=== PATIENT | male | born 1970 | race Caucasian/White ===

== ENCOUNTER → 2016-12-10 | Outpatient (CLI) | payer BC ==
[~2016-12-10] MED LIST: TEST1INJ2 SC; TRAM-10 PO
== END | disposition home or self-care (01) ==
LOC: C.RDSM 14:22
PROVIDERS: ATTEND Orthopaedic Surgery Sports Medicine
DX: M25.562 Pain in left knee (principal)

== ENCOUNTER → 2018-01-20 | Outpatient (CLI) | payer BC, OTHER | END | disposition home or self-care (01) | LOC: C.RDSM 16:07 | PROVIDERS: ATTEND Orthopaedic Surgery Sports Medicine | DX: M25.562 Pain in left knee (principal) ==

== ENCOUNTER → 2018-02-11 | Day surgery (SDC) | payer OTHER ==
[2018-02-01 11:19] VITALS: Ht 182.9 cm; Wt 97.7 kg
[~2018-02-11] VITALS: Ht 182.9 cm; Wt 97.7 kg
[~2018-02-11] MED LIST changes: +ATROPINE SULFATE 0.1 MG/ML 5ML SYR IV PRN; +BUPIVACAINE/EPINEPHRINE 0.5% MPF 1:200,000 30 ML VIAL ONE; +CEFAZOLIN 2000MG IV PUSH 15 ML IV SCH; +DEXAMETHASONE SOD INJ 4 MG/ML VIAL ONE; +EpHEDrine SULFATE INJ 50 MG/ML AMP IV PRN; +EpINEphrine INJ 1MG/ML AMP 1 MG/ML AMP ONE; +FENTANYL CITRATE INJ 50 MCG/1 ML 2 ML VIAL ONE; +HYDROCODONE/ACETAMIN 5/325MG TAB PO PRN; +KETOROLAC TROMETHAMINE 30 MG/ML VIAL ONE; +LACTATED RINGER'S 1000ML 1,000 ML IV SCH; +LIDOCAINE HCL 1% 20 ML VIAL ONE; +LIDOCAINE HCL 2% 2 ML VIAL (20MG/ML) ONE; +MIDAZOLAM HCL 1 MG/ML 2ML VIAL ONE; +MoRPHine SULFATE 2 MG/ML CARP IV PRN; +MoRPHine SULFATE 4 MG/ML 1 ML CARP\\VIAL IV PRN; +ONDANSETRON INJ 2 MG/ML 2 ML VIAL IV PRN; +ONDANSETRON INJ 2 MG/ML 2 ML VIAL ONE; +PROPOFOL IV EMULSION 10 MG/ML 20 ML VIAL IV ONE
--- NOTE | 2018-02-11 06:38 | History & Physical Bridge - SC ---
H&P Re-Evaluation Bridge Note: I have examined the patient, reviewed the History & Physical and in the interval since the performance of the History & Physical I have noted the following changes of clinical significance: No changes noted
--- NOTE | 2018-02-11 08:50 | [facility] Operative Report ---
Operative Report Operative Date Feb 11, 2018. Pre-Operative Diagnosis Left Knee Pain, Iliotibial Band Syndrome Post-Operative Diagnosis Same + Medial & Lateral meniscus tears, and synovitis Procedure(s) Performed 1) Left Knee Arthroscopy, Extensive Debridement. 2) Partial Medial and Lateral Menisectomy. 3) Open Iliotibial Band Lengthening. 4) Manipulation Under Anesthesia. Surgeon Dr. Roque Pick Up Man Surgeon(s) Dr. Washington, Fellow Estimated Blood Loss 15ml Findings The left knee was examined under anesthesia. Range of motion was 0-135, there was audible and palpable breakup of adhesions. Ligamentous examination exhibited: stable Stewart, posterior drawer, varus and valgus stress at 0 & 30 degrees. ARTHROSCOPIC FINDINGS: There was significant synovitis in the suprapatellar pouch. 1) PATELLOFEMORAL JOINT: The articular cartilage of the Patella and Trochlea showed Outerbridge type I changes diffusely. 2) GUTTERS: No loose bodies. There was some synovitis in both gutters. 3) MEDIAL COMPARTMENT: The articular cartilage of the femur had type I changes, with a small bubbled area near the intercondylar notch. The articular cartilage of the Tibia had more diffuse type I changes. The medial meniscus had a small radial tear at the apex. 4) ACL/PCL: They were both visualized and probed to be intact. 5) LATERAL COMPARTMENT: The lateral compartment was then entered in a figure-of- four position. The femoral or tibial cartilage was intact. The tibial articular cartilage had type I changes. The lateral meniscus had degenerative fraying along the edges from posterior to anterior. The IT band had significant scarring superficially as well as deep to the IT band. Fluids 1000 Specimens A) IT Band Left Leg B) IT Band Bursa Left Leg Drains None Anesthesia Type General Complication(s) none Disposition Recovery Room / PACU (Stable) Indications This is a 47-year-old male who has had a recalcitrant IT band syndrome resulting in significant pain, difficulty ambulating, and decreased range of motion that failed to respond to conservative treatment. I recommended that a left knee arthroscopy be performed, manipulation under anesthesia, and open IT band lengthening. The patient understands the risks of surgery, which include but not limited to: bleeding, infection, re-operation, damage to nerves and arteries, continued knee pain, progression of OA, DVT, and a 2-5% risk of becoming worse after surgery. The patient understands all of these instructions and explanations, all of his questions have been satisfactorily addressed and the patient has elected to proceed. Informed consent was signed. Description of Procedure The patient was taken to the Operating Room and placed in the supine position after general anesthetic was administered. My initials and a multidisciplinary time-out were used to identify the left leg as the correct operative limb. Prior to the incision, 2 grams of intravenous Ancef was given. The left knee was then injected with 20cc of a 50:50 mix of 1% Lidocaine plain and 0.5% Bupivacaine with epinephrine in a sterile fashion using the superolateral portal. The left leg was then prepped and draped in a standard sterile fashion. The anterolateral and anteromedial portals, and the planned lateral incision were injected with the 50:50 mixture noted above, for a total of 10cc, in the standard fashion. An anterolateral arthroscopic portal was established with an 11-blade. Next, the arthroscope was introduced into the knee. A diagnostic arthroscopy commenced anteromedial portal was established under direct visualization using a spinal needle followed by an 11 blade in the standard fashion. The above findings were observed during the diagnostic arthroscopy. The synovitis and anterior fat pad were debrided as they were encounter with mechanical shaver. The medial and lateral meniscus tears were evaluated and found to be irreparable and was debrided back to stable margin with hand punches and mechanical shaver. The knee was copiously irrigated. The arthroscopic instruments were then removed. Our attention was then drawn to the IT band. The planned incision was made through the skin. There was significant scarring that was debrided to expose the superficial IT band. The lateral epicondyles was palpated. A rodney pattern excision of the central portion of the IT band overlying the lateral epicondyles was carefully removed with the knee at 30 of flexion. There was some adhesions on the undersurface of the IT band which were removed. Samples were sent to pathology. The lateral incision and the portals were closed with 4-0 Monocryl in a running subcuticular fashion and then covered with Dermabond. The wounds were dressed with Steri-Strips, sterile gauze, ABDs, sterile Webril, and a foot to thigh Joshua bandage. The patient was then transferred to the Recovery Room in stable condition. The sponge and needle counts were correct. Post-op Instructions: The patient will be WBAT. The patient may remove the operative dressing on Post -Op Day #2 and apply Band-Aids to the wounds. The patient may shower in 72 hours and is to wear the ALFONSO for 2 weeks on the operative limb. The patient is to use the pain medicine as needed and take the ASA for 2 weeks. The patient was also given a handout for home quad strengthening and seated self-assisted ROM exercises, which they may begin tomorrow. The patient was given a prescription for PT and is scheduled for an appointment later this week. The patient is to follow up with me in 10-15 days. I attest to the content of the Intraoperative Record and any orders documented therein. Any exceptions are noted below.
--- NOTE | 2018-02-11 08:50 | [facility] Post Operative Brief Note ---
Immediate Operative Summary Operative Date Feb 11, 2018. Pre-Operative Diagnosis Left Knee Pain, Iliotibial Band Syndrome Post-Operative Diagnosis Same + Medial & Lateral meniscus tears, and synovitis Procedure(s) Performed 1) Left Knee Arthroscopy, Extensive Debridement. 2) Partial Medial and Lateral Menisectomy. 3) Open Iliotibial Band Lengthening. 4) Manipulation Under Anesthesia. Surgeon Dr. Roque Gamer Surgeon(s) Dr. Washington, Fellow Estimated Blood Loss 15ml Findings Consistent with Post-Op Diagnosis Fluids (cc crystalloids) 1000 Specimens A) IT Band Left Leg B) IT Band Bursa Left Leg Drains None Anesthesia Type General Complication(s) none Disposition Disposition: Recovery Room / PACU (Stable)
--- NOTE | 2018-02-11 08:52 | Discharge Instructions-SurgCtr ---
Discharge Instructions Date of Service Feb 11, 2018. Visit Reason for Visit: Left Knee Pain, Iliotibial Band Syndrome Discharge Discharge Diagnosis / Problem: Left IT Band lengthening, Left knee artroscopy Discharge Goals Goal(s): Decrease discomfort, Improve function, Increase independence Medications Stopped Medications Name(s): held ibuprofen for four days Activity Recommendations Activity Limitations: per Instructions/Follow-up section May Resume Sexual Activity: when tolerated Shower/Bathe: may shower/bathe in 3 days Driving or Machine Use: Not while on Narcotics Weightbearing Status: Left weightbearing (as tolerated) Anesthesia . Post Anesthesia Instructions: If you have had General Anesthesia or IV Sedation: * Do not drive today. * Resume driving when surgeon permits. * Do not make important decisions or sign legal documents today. * Call surgeon for: 1. Temperature elevations greater than 101 degrees F. 2. Uncontrollable pain. 3. Excessive bleeding. 4. Persistent nausea and vomiting. 5. Medication intolerance (nausea, vomiting or rash). * For nausea and vomiting use only clear liquids such as: tea, soda, bouillon until nausea subsides, then gradually increase diet as tolerated. * If you have any concerns or questions, call your surgeon's office. If physician is unavailable and it is an emergency, call 911 or go to the nearest emergency room. . Diet Recommendations Home Diet: resume previous diet Procedures Procedures Performed: 1) Left Knee Arthroscopy, Extensive Debridement. 2) Partial Medial and Lateral Menisectomy. 3) Open Iliotibial Band Lengthening. 4) Manipulation Under Anesthesia. Pending Studies Studies pending at discharge: no Medical Emergencies . Who to Call and When: Medical Emergencies: If at any time you feel your situation is an emergency, please call 911 immediately. . Non-Emergent Contact Non-Emergency issues call your: Surgeon Call Non-Emergent contact if: temperature is above 101.5, your pain is not controlled, wound has increased drainage, wound has increased redness . . "Provider Documentation" section prepared by Luisito Roque. .
[2018-02-11] MEDS: FENTANYL CITRATE INJ 50 MCG/1 ML 2 ML VIAL IV PRN ×4 (09:25→09:44)
[2018-02-11 10:00] VITALS: TEMP 36.7
--- NOTE | 2018-02-11 11:01 | Anesthesia Progress Nt - [facility] ---
Anesthesia Post Op Note Date & Time Feb 11, 2018 at 11:00 Vital Signs Pain Intensity: 4 Vital Signs Past 12 Hours Date Time Temp Pulse Resp B/P (MAP) Pulse Ox O2 Delivery O2 Flow Rate FiO2 02/11/18 10:00 36.7 78 20 123/80 (94) 95 Room Air 02/11/18 09:53 82 15 02/11/18 09:53 84 15 94 02/11/18 09:50 111/75 02/11/18 09:50 37.0 78 12 111/75 94 Room Air 02/11/18 09:48 88 13 02/11/18 09:48 89 13 95 02/11/18 09:45 121/76 02/11/18 09:43 89 16 95 02/11/18 09:43 88 16 02/11/18 09:40 124/78 02/11/18 09:38 72 10 98 02/11/18 09:38 73 10 02/11/18 09:36 125/74 02/11/18 09:33 75 15 02/11/18 09:33 77 15 97 02/11/18 09:32 79 13 02/11/18 09:32 79 13 98 02/11/18 09:31 117/86 02/11/18 09:27 16 02/11/18 09:27 95 16 02/11/18 09:26 80 16 98 02/11/18 09:26 81 16 02/11/18 09:25 140/88 02/11/18 09:21 80 19 97 02/11/18 09:21 80 19 02/11/18 09:20 124/81 02/11/18 09:16 80 18 97 02/11/18 09:16 80 18 02/11/18 09:15 128/87 02/11/18 09:12 127/82 02/11/18 09:11 36.8 80 16 127/82 96 Diffusion Mask 6 02/11/18 06:18 36.6 79 16 137/91 (106) 97 Room Air Notes Mental Status: alert / awake / arousable, participated in evaluation Pt Amnestic to Procedure: Yes Nausea / Vomiting: adequately controlled Pain: adequately controlled Airway Patency, RR, SpO2: stable & adequate BP & HR: stable & adequate Hydration State: stable & adequate Anesthetic Complications: no major complications apparent
[2018-02-11 11:07] VITALS: BP 116/75; PULSE 66; O2SAT 98
== END | disposition home or self-care (01) ==
LOC: X.SURG 06:13
PROVIDERS: ATTEND Orthopaedic Surgery Sports Medicine
DX: M76.32 Iliotibial band syndrome, left leg (principal); M23.362 Other meniscus derangements, other lateral meniscus, left knee; M23.332 Other meniscus derangements, other medial meniscus, left knee; M25.462 Effusion, left knee; Z88.5 Allergy status to narcotic agent; Z91.030 Bee allergy status